=== PATIENT | female | born 1955 | race Caucasian/White ===

== ENCOUNTER 2018-05-27 00:03 | Emergency (ER) | payer MEDICAID ==
[2018-05-27] MEDS ORDERED: Ondansetron 4 MG/2 ML SDV IVPUSH ONE (00:42)
[2018-05-27] MEDS ORDERED: HYDROmorphone 0.5 MG/0.5 ML Syringe IVPUSH ONE (00:42)
[2018-05-27] MEDS ORDERED: Lactated Ringers 1,000 ML IV SCH (00:45)
--- NOTE | 2018-05-27 00:47 | EDM.PDOC ---
ED HPI GENERAL MEDICAL PROBLEM - General Chief Complaint: Gastrointestinal Problem Stated Complaint: STOMACH CRAMPS Time Seen by Provider: 05/27/18 00:30 Source of Information: Reports: Patient History Limitations: Reports: No Limitations - History of Present Illness INITIAL COMMENTS - FREE TEXT/NARRATIVE: 63-year-old female with nausea vomiting and diarrhea, abdominal cramping for the past 3 days. Unknown if she's been feverish but she has had chills. No exposure to illness. No hematemesis or hematochezia. Denies radiation of pain to the back. Most of her abdominal pain is right-sided, especially right lower quadrant. She has developed some peritoneal signs, it's painful to walk and ride in the car. Tonight she tried to go to work, took a drink of water and vomited and really she needed to be checked out. She's otherwise usually healthy , no history of abdominal surgeries. Onset: Gradual Duration: Day(s): (3 days) Associated Symptoms: Reports: Fever/Chills, Loss of Appetite, Malaise, Nausea/ Vomiting. Denies: Chest Pain, Cough, Syncope Treatments HOME THEATER EXPERT: Reports: Other (see below) Other Treatments HOME THEATER EXPERT: unknown abd cramps Pain Score (Numeric/FACES): 10 - Related Data Allergies Allergy/AdvReac Type Severity Reaction Status Date / Time aspirin Allergy Abdominal Verified 05/27/18 00:25 Cramps shellfish derived Allergy Other Verified 05/27/18 01:40 Home Meds: Home Meds Escitalopram Oxalate 20 mg PO DAILY 05/27/18 [History] Magnesium 250 mg PO DAILY 05/27/18 [History] Past Medical History HEENT History: Reports: Impaired Vision Gastrointestinal History: Reports: Hemorrhoids Psychiatric History: Reports: Depression - Infectious Disease History Infectious Disease History: Reports: Chicken Pox - Past Surgical History HEENT Surgical History: Reports: Oral Surgery Musculoskeletal Surgical History: Reports: Knee Replacement, Other (See Below) Other Musculoskeletal Surgeries/Procedures:: camel toe surgery Social & Family History - Tobacco Use Smoking Status *Q: Never Smoker - Caffeine Use Caffeine Use: Reports: Coffee, Energy Drinks, Soda, Tea - Recreational Drug Use Recreational Drug Use: No ED ROS GENERAL - Review of Systems Review Of Systems: See Below Constitutional: Reports: Chills, Malaise, Decreased Appetite HEENT: Reports: No Symptoms Respiratory: Denies: Shortness of Breath Cardiovascular: Denies: Chest Pain GI/Abdominal: Reports: Abdominal Pain, Diarrhea, Decreased Appetite, Nausea, Vomiting : Reports: No Symptoms Musculoskeletal: Denies: Back Pain Skin: Reports: No Symptoms Neurological: Reports: No Symptoms ED EXAM, GI/ABD - Physical Exam Exam: See Below Exam Limited By: No Limitations General Appearance: Alert, No Apparent Distress (Patient looks uncomfortable but not distressed) Eyes: Bilateral: Normal Appearance (No jaundice) Respiratory/Chest: No Respiratory Distress, Lungs Clear Cardiovascular: Regular Rate, Rhythm GI/Abdominal Exam: Tender (Very tender to palpation with guarding along the right abdomen, especially the right lower quadrant. She does have rebound tenderness.), Abnormal Bowel Sounds (Patient has literally no bowel sounds) Neurological: Alert, Oriented, No Motor/Sensory Deficits Psychiatric: Normal Affect, Normal Mood Skin Exam: Warm, Dry Course - Vital Signs Last Recorded V/S: Last Vital Signs Temp 102.3 F H 05/27/18 02:10 Pulse 101 H 05/27/18 02:10 Resp 15 05/27/18 02:10 BP 144/76 H 05/27/18 02:10 Pulse Ox 92 L 05/27/18 02:10 - Orders/Labs/Meds Labs: Laboratory Tests 05/27/18 05/27/18 Range/Units 01:04 01:04 WBC 11.9 H (4.5-11.0) K/uL RBC 5.16 (3.30-5.50) M/uL Hgb 13.9 (12.0-15.0) g/dL Hct 43.6 (36.0-48.0) % MCV 85 (80-98) fL MCH 27 (27-31) pg MCHC 32 (32-36) % Plt Count 252 (150-400) K/uL Neut % (Auto) 87 H (36-66) % Lymph % (Auto) 8 L (24-44) % [place] % (Auto) 5 (2-6) % Eos % (Auto) 0 L (2-4) % Baso % (Auto) 0 (0-1) % Sodium 139 L (140-148) mmol/L Potassium 3.5 L (3.6-5.2) mmol/L Chloride 103 (100-108) mmol/L Carbon Dioxide 27 (21-32) mmol/L Anion Gap 12.5 (5.0-14.0) mmol/L BUN 12 (7-18) mg/dL Creatinine 0.8 (0.6-1.0) mg/dL Est Cr Clr Drug Dosing 67.38 mL/min Estimated GFR (MDRD) > 60 (>60) Glucose 139 H (74-106) mg/dL Calcium 9.1 (8.5-10.1) mg/dL Total Bilirubin 0.4 (0.2-1.0) mg/dL AST 14 L (15-37) U/L ALT 16 (12-78) U/L Alkaline Phosphatase 91 (46-116) U/L Total Protein 8.1 (6.4-8.2) g/dL Albumin 3.4 (3.4-5.0) g/dL Globulin 4.7 H (2.3-3.5) g/dL Albumin/Globulin Ratio 0.7 L (1.2-2.2) Amylase 33 (25-115) U/L Lipase 62 L (73-393) U/L Meds: Medications Discontinued Medications Generic Name Dose Route Start Last Admin Trade Name Freq PRN Reason Stop Dose Admin Hydromorphone HCl 0.5 mg 05/27/18 00:42 05/27/18 01:10 Dilaudid IVPUSH 05/27/18 00:43 0.5 mg ONETIME ONE Administration Lactated Ringer's 1,000 mls @ 1,000 mls/hr 05/27/18 00:45 05/27/18 01:06 Ringers, Lactated IV 1,000 mls/hr ASDIRECTED TYLER Administration Sodium Chloride 1,000 mls @ 1,000 mls/hr 05/27/18 01:30 05/27/18 02:23 Normal Saline IV 1,000 mls/hr ASDIRECTED TYLER Administration Sodium Chloride 89 mls @ 3.5 mls/sec 05/27/18 02:00 05/27/18 02:05 Normal Saline IV 3.5 mls/sec ASDIRECTED TYLER Administration Cefoxitin Sodium 2 gm/ Sodium 50 mls @ 100 mls/hr 05/27/18 02:40 05/27/18 02: 52 Chloride IV 05/27/18 03:09 100 mls/hr ONETIME ONE Administration Iopamidol 150 ml 05/27/18 01:49 05/27/18 02:05 Isovue-300 (61%) IV 05/28/18 01:50 150 ml . DIRECTED PRN Administration RADIOLOGY EXAM Ondansetron HCl 4 mg 05/27/18 00:42 05/27/18 01:07 Zofran IVPUSH 05/27/18 00:43 4 mg ONETIME ONE Administration Sodium Chloride 10 ml 05/27/18 02:00 05/27/18 02:05 Saline Flush FLUSH 10 ml ONETIME TYLER Administration - Re-Assessments/Exams Free Text/Narrative Re-Assessment/Exam: 05/27/18 00:46 Patient will be hydrated with 1 L of LR, given 0.5 mg of Dilaudid and 4 mg IV Zofran. CBC, CMP, amylase and lipase are obtained, and we will likely need to CT her abdomen after kidney function labs returned. 05/27/18 02:49 Chemistry profile is reassuring, amylase and lipase were negative. White count was mildly elevated. CT scan with IV contrast confirmed acute appendicitis. Patient was then given 2 g of IV Mefoxin and because our hospital was full she was transferred to [facility] and accepted by Dr. Elizalde. Departure - Departure Time of Disposition: 03:02 Disposition: DC/Tfer to Other 70 Condition: Fair Clinical Impression: Acute appendicitis Qualifiers: Acute appendicitis type: with localized peritonitis Appendicitis gangrene presence: without gangrene Appendicitis perforation presence: without perforation Appendicitis abscess presence: without abscess Qualified Code(s): K35.30 - Acute appendicitis with localized peritonitis, without perforation or gangrene - Discharge Information Referrals: PCP,None [Primary Care Provider] - Forms: ED Department Discharge Care Plan Goals: Patient will be transported by ambulance to [facility], for surgical consultation and treatment with a diagnosis of acute appendicitis.
[2018-05-27] MEDS ORDERED: Sodium Chloride 0.9% 1,000 ML IV SCH (01:30)
[2018-05-27] MEDS ORDERED: Iopamidol 612 MG/ML 150 ML Bottle IV PRN (01:49)
[2018-05-27] MEDS ORDERED: Sodium Chloride 0.9% 10 ML Syringe FLUSH SCH (02:00)
[2018-05-27] MEDS ORDERED: cefOXitin 2 GM in Sodium Chloride 0.9% 50 ML IV ONE (02:40)
--- NOTE | 2018-05-27 04:18 | CRLCT ---
Final Report: INDICATION: Abdominal pain TECHNIQUE: CT abdomen and pelvis acquired with IV contrast. 150 cc Isovue-300 COMPARISON: None FINDINGS: Lower chest: Unremarkable. Liver: Unremarkable. Spleen: Unremarkable. Pancreas: Unremarkable. Gallbladder and bile ducts: Unremarkable. Kidneys: Unremarkable. Adrenal glands: Unremarkable. GI tract: Unremarkable. Appendix is dilated to 9 millimeters, thick-walled with adjacent periappendiceal fluid. Findings consistent with acute appendicitis. Vascular structures: Unremarkable. Lymph nodes: Unremarkable. Miscellaneous: Small fat containing umbilical hernia. No free air or significant free fluid. Pelvic Organs: 0.4 centimeter by 5.3 centimeter left ovarian cyst. Bones: Grade 1 anterior listhesis of L5 over S1. IMPRESSION: Findings consistent with acute appendicitis. 7.4 centimeter x 5.3 centimeter left ovarian cyst. Dictated by Sixto Jackson MD @ 05/27/2018 2:33:40 AM Please note that all CT scans at this facility use dose modulation, iterative reconstruction, and/or weight-based dosing when appropriate to reduce radiation dose to as low as reasonably achievable. Dictated by: Sixto Jackson MD @ 05/27/2018 02:33:56 (Electronic Signature) MTDD
== END 2018-05-27 03:32 | disposition other institution (70) ==
LOC: JP.ED 00:03
DX: K35.30 Acute appendicitis with localized peritonitis, without perforation or gangrene (principal); F32.9 Major depressive disorder, single episode, unspecified; Z79.899 Other long term (current) drug therapy; Z88.6 Allergy status to analgesic agent; Z91.013 Allergy to seafood
CPT/HCPCS: 36415; 74177; 80053; 82150; 83690; 85025; 96361; 96365; 96375; 99285; J0694; J1170; J2405; J7030; J7050; J7120